=== PATIENT | female | born 1940 | race Caucasian/White ===

== ENCOUNTER → 2023-07-11 10:53 | Outpatient (REF) | payer OTHER, SELFPAY | LOC: PAVMRI 10:53 | PROVIDERS: ATTENDING PHYSICIAN Internal Medicine Hematology & Oncology; FAMILY PHYSICIAN Family Medicine; REFERRING PHYSICIAN Otolaryngology | DX: C43.72 Malignant melanoma of left lower limb, including hip (principal) | CPT/HCPCS: 70553; A9575 ==

== ENCOUNTER 2024-04-06 18:00 | Emergency (ER) | payer OTHER, SELFPAY ==
[2024-04-06] VITALS (7 sets, daily range): BP systolic 107–154; BP diastolic 65–112; BMI 26.3
--- NOTE | 2024-04-06 18:12 | ED.GENMED ---
ED Provider Triage
<GABRIEL Mckee Jr. Last Filed: 04/06/24 18:15>
-
Patient seen by provider in Triage?: Seen in Triage
Attestation: A medical screening examination has been initiated by a qualified medical provider. Based on the assessment performed at this time, it has been determined that an emergent medical condition may exist and the patient has been informed
that further medical evaluation and possible additional diagnostic testing may be needed.
HPI: 83-year-old female with chest pain off and on for the past 7 days to the central chest no radiation no associated symptoms. Additional labs and chest x-ray ordered for further assessment.
GENERAL: Alert , in no apparent distress
EYE: No visual abnormalities.
NECK: Trachea midline
ENT: No visible abnormalities.
LUNGS: No acute respiratory distress
NEUROLOGICAL: Alert and oriented
SKIN: Skin intact. No visible changes.
MUSCULOSKELETAL: Moving extremities normally
PSYCH: Normal and appropriate interaction.
This is a medical evaluation conducted in person to initiate diagnostic evaluation and provide initial therapeutics. Please see further documentation by the treating clinician.
History of Present Illness
<Sarabjit Marsh Jr., PA-C - Last Filed: 04/06/24 18:15>
General
Chief Complaint: Chest Pain
Time Seen by Provider: 04/06/24 20:30
<Logan Cisse DO - Last Filed: 04/06/24 23:26>
General
Source: patient
Exam Limitations: none
Nursing documentation reviewed up to this point in time: agreed with
History of Present Illness
History of Present Illness:
83-year-old female pain for 1 week in her lower sternum worse with movement no nausea vomiting no radiation has melanoma on Keytruda also has a thyroid nodule no history of CAD no nausea vomiting fever chills
Past History
<GABRIEL Mckee Jr. Last Filed: 04/06/24 18:15>
Past History
ED Past Medical History: Cancer (Thyroid cancer) and Hypercholesterolemia
ED Past Surgical History: Cardiac (Mitral valve repair), Urological (bladder lift) and Other (Thyroidectomy)
Social History
Tobacco: Non-smoker
Alcohol: None
Drug: None
Living: with family
Phy Exam
<Logan Cisse DO - Last Filed: 04/06/24 23:26>
Physical Exam
Physical Exam:
Physical Exam
General: no apparent distress, not acutely ill
Neck: Negative jaundice
Heart: s1/s2 regular rate and rhythm, no murmur. equal radial pulses.
Lungs: no acute respiratory distress. clear bilaterally
Abdomen: Nontender
Neuro: alert and oriented. no focal neurological deficits
Skin: no rash
Psychiatric: well kept. interactive and cooperative
Extremities: Trace edema no tenderness
Scores
<Logan Cisse DO - Last Filed: 04/06/24 23:26>
Heart Score for Chest Pain Patients
STEMI patient?: No
History: Slightly or Non-Suspicious
ECG: Normal
Age: >/= 65 years
Risk Factors: 1 or 2 Risk Factors
Troponin: </= Normal Limit
Heart Score for Chest Pain Patients: 3
Heart Score Risk: 2.5% MACE over next 6 weeks
Course
<Sarabjit Marsh Jr. PAShaunna - Last Filed: 04/06/24 18:15>
Orders/Labs/Results
Orders:
Orders
04/06/24 18:07
EKG [Electrocardiogram (*1)] Urgent
Reason for Study: Chest Pain
EKG- Treatment ONCE
04/06/24 18:13
CR Chest - 2 Views Urgent
Comment:
Reason For Exam: cp
04/06/24 18:36
Complete Blood Count/With Diff Urgent
Comprehensive Metabolic Panel Urgent
Magnesium Urgent
NT-proBNP Urgent
Troponin I Urgent
04/06/24 20:36
CT Chest Pe Study Urgent
Comment:
Reason For Exam: cp melanoma
Acetaminophen 1000MG/100Ml [Ofirmev] 1,000 mg in 100 ml IV ONCE
Acetaminophen IV Indication:: No [place] & No Enteral Access
04/06/24 20:37
HydrALAZINE [Apresoline] 10 mg IV NOW STA
Abnormal Lab Results
04/06/24
18:36
RBC 4.10 L 10^6/uL
(4.20-5.40)
MCH 32.7 H pg
(27.0-31.0)
Absolute Neuts (auto) 6.9 H 10^3/uL
(1.4-6.5)
Absolute Lymphs (auto) 0.7 L 10^3/uL
(1.2-3.4)
Neutrophils % 86.2 H %
(42.2-75.2)
Lymphocytes % 8.5 L %
(20.5-51.1)
BUN 25 H mg/dl
(7-17)
Glucose 134 H mg/dl
(70-99)
04/06/24 18:36
04/06/24 18:36
Vital Signs
Initial and Last Documented VS:
Initial Vital Signs
Temp Pulse Resp BP
98.4 F 75 20 147/112
04/06/24 18:23 04/06/24 18:23 04/06/24 18:23 04/06/24 18:23
Last Documented Vital Signs
Temp Pulse Resp BP Pulse Ox
98.4 F 87 17 107/65 96
04/06/24 18:23 04/06/24 23:02 04/06/24 23:02 04/06/24 21:40 04/06/24 21:45
<Logan Cisse, DO - Last Filed: 04/06/24 23:26>
Orders/Labs/Results
Orders:
Orders
04/06/24 18:07
EKG [Electrocardiogram (*1)] Urgent
Reason for Study: Chest Pain
EKG- Treatment ONCE
04/06/24 18:13
CR Chest - 2 Views Urgent
Comment:
Reason For Exam: cp
04/06/24 18:36
Complete Blood Count/With Diff Urgent
Comprehensive Metabolic Panel Urgent
Magnesium Urgent
NT-proBNP Urgent
Troponin I Urgent
04/06/24 20:36
CT Chest Pe Study Urgent
Comment:
Reason For Exam: cp melanoma
Acetaminophen 1000MG/100Ml [Ofirmev] 1,000 mg in 100 ml IV ONCE
Acetaminophen IV Indication:: No WI & No Enteral Access
04/06/24 20:37
HydrALAZINE [Apresoline] 10 mg IV NOW STA
Abnormal Lab Results
04/06/24
18:36
RBC 4.10 L 10^6/uL
(4.20-5.40)
MCH 32.7 H pg
(27.0-31.0)
Absolute Neuts (auto) 6.9 H 10^3/uL
(1.4-6.5)
Absolute Lymphs (auto) 0.7 L 10^3/uL
(1.2-3.4)
Neutrophils % 86.2 H %
(42.2-75.2)
Lymphocytes % 8.5 L %
(20.5-51.1)
BUN 25 H mg/dl
(7-17)
Glucose 134 H mg/dl
(70-99)
04/06/24 18:36
04/06/24 18:36
Vital Signs
Initial and Last Documented VS:
Initial Vital Signs
Temp Pulse Resp BP
98.4 F 75 20 147/112
04/06/24 18:23 04/06/24 18:23 04/06/24 18:23 04/06/24 18:23
Last Documented Vital Signs
Temp Pulse Resp BP Pulse Ox
98.4 F 87 17 107/65 96
04/06/24 18:23 04/06/24 23:02 04/06/24 23:02 04/06/24 21:40 04/06/24 21:45
<Logan Cisse DO - Last Filed: 04/06/24 23:26>
MDM/Problems Addressed
Differential Diagnosis Includes:
Pleurisy PE metastatic disease doubt ACS
MDM/Problems Addressed:
Chest pain
Chronic conditions affecting care: Cancer
Acute Exacerbation and/or Progression of Chronic Illness: Cancer
<Logan Cisse DO - Last Filed: 04/06/24 23:26>
*Radiology
Radiology exam reviewed: radiology read reviewed
*Pulse Oximetry
Patient hypoxic: no
*EKG
Interpreted by ED Provider?: Yes
Interpretation: normal
Comparison EKG: no comparison EKG present
Heart Rate: 78
Rate: normal
Rhythm: sinus
QRS Pattern: normal QRS
*Recreation Program Coordinator Interpretation
Rate: normal
Interpretation: normal
Heart Rate: 78
Rhythm: sinus
*Critical Care Note
Total Time (30-74mins, 75-104mins- exclusive of procedures): Not Applicable
<Logan Cisse DO - Last Filed: 04/06/24 23:26>
Update Note
Update Note:
Update, labs are noted 7 days of pain with low troponin, proBNP noted will check CT of the chest to rule out thromboembolic disease or mets
Update CT noted,
ED Attending Note
<Sarabjit Marsh Jr., PA-C - Last Filed: 04/06/24 18:15>
-
Portions of this chart may have been created with voice recognition software.� Occasional wrong word or��sound alike� substitutions may have occurred due to the inherent limitations of voice recognition software.
Discharge Plan
Departure
Patient Disposition: Home (Routine Discharge)
Date of Disposition: 04/06/24
Time of Disposition: 23:25
Patient with high blood pressure during this ER visit?: No
Condition: Good
Discharge Problem:
Chest wall pain
Prescriptions:
New
oxycodone 5 mg capsule
5 mg PO Q8H PRN (Reason: Pain) Qty: 10 0RF
No Action
amlodipine 5 mg Tablet
5 mg PO DAILY
levothyroxine [Synthroid] 100 mcg Tablet
100 mcg PO DAILY
hydroxychloroquine [Plaquenil] 200 mg Tablet
200 mg PO DAILY
ezetimibe-atorvastatin 10-20 mg Tablet
1 tab PO DAILY
Keytruda 25 mg/mL Solution
400 mg IV Q6W
Referrals:
NONE,* [Family Provider] -
Interventions
Interventions:
*Risk Screen - Suicide Last Done: 04/06/24 18:23
*General Assessment Last Done: 04/06/24 18:23
*Neglect/Abuse Screening Last Done: 04/06/24 18:23
ED- Fall Risk Assessment Last Done: 04/06/24 20:16
*ED COVID-19 Vaccine History Last Done: 04/06/24 20:16
ED- Cardiac Assessment Last Done: 04/06/24 20:15
Discharge Date and Time
Print Language: GREENLANDIC
[2024-04-06 18:43] LABS: % Basophils 0.4 % (0-2); % Eosinophils 0.6 % (0-6); % Immature Granulocytes 0.4 % (0-0.5); % Lymphocytes 8.5 % (20.5-51.1); % Monocytes 3.9 % (1.7-9.3); % Neutrophils 86.2 % (42.2-75.2); Absolute Eosinophils 0.1 10^3/uL (0-0.7); Absolute Lymphocytes 0.7 10^3/uL (1.2-3.4); Absolute Monocytes 0.3 10^3/uL (0.1-0.6); Absolute Neutrophils 6.9 10^3/uL (1.4-6.5); Hematocrit 39.8 % (37.0-47.0); Hemoglobin 13.4 g/dL (12.0-16.0); Mean Corp Hgb Conc. 33.7 g/dL (33.0-37.0); Mean Corpuscular Hgb 32.7 pg (27.0-31.0); Mean Corpuscular Volume 97.1 fL (81.0-99.0); Mean Platelet Volume 9.4 fL (7.4-10.4); Nucleated Red Blood Cells % 0 %; Platelet Count 208 10^3/uL (130-400); Red Cell Dist. Width 12.6 % (11.5-14.5)
[2024-04-06 18:57] LABS: ALT (SGPT) 24 U/L (0-35); AST (SGOT) 28 U/L (14-36); Albumin 4.8 g/dl (3.5-5.0); Alkaline Phosphatase 65 U/L (38-126); Blood Urea Nitrogen 25 mg/dl (7-17); Calcium 9.3 mg/dl (8.4-10.2); Carbon Dioxide 27 mmol/L (22-30); Chloride 98 mmol/L (98-107); Glucose 134 mg/dl (70-99); Magnesium 2.1 mg/dl (1.6-2.3); Sodium 136 mmol/L (135-145); Total Protein 7.7 g/dl (6.3-8.2); eGFR > 60.00
[2024-04-06 19:07] LABS: NT-proBNP 261 pg/ml; Troponin I < 0.012 ng/ml
[2024-04-06] MEDS: APRESOLINE 10 MG IV (21:02)
[2024-04-06] MEDS: OFIRMEV 100 IV (21:04)
[2024-04-07] VITALS: BP 98/65
== END 2024-04-07 00:26 | disposition home or self-care (01) ==
LOC: EMR 18:00
PROVIDERS: Physician Assistant; EMERGENCY PHYSICIAN Emergency Medicine
DX: R07.89 Other chest pain (principal); C43.9 Malignant melanoma of skin, unspecified; E78.00 Pure hypercholesterolemia, unspecified; E89.0 Postprocedural hypothyroidism; Z85.850 Personal history of malignant neoplasm of thyroid
CPT/HCPCS: 99285; 96374; 96375; 71046; 71275; 80053; 83735; 83880; 84484; 85025; 93005; Q9967

== ENCOUNTER → 2024-12-31 09:44 | Outpatient (REF) | payer OTHER, SELFPAY ==
[2024-12-31 09:49] LABS: Glucose 112 mg/dl (70-99)
== END ==
LOC: PET 09:44
PROVIDERS: ATTENDING PHYSICIAN Internal Medicine Hematology & Oncology
DX: C43.72 Malignant melanoma of left lower limb, including hip (principal); Z79.899 Other long term (current) drug therapy
CPT/HCPCS: 36415; 82947

== ENCOUNTER 2025-01-03 11:15 | Emergency (ER) | payer OTHER, SELFPAY ==
[2025-01-03 11:34] VITALS: BP 130/95
[2025-01-03] MEDS: LET TOPICAL ANESTHETIC GEL 3 ML TOPICAL (12:23)
--- NOTE | 2025-01-03 12:31 | ED.MUSCINJ ---
HPI-Injury
General
Chief Complaint: Fall
Source: patient and family
Exam Limitations: none
Time Seen by Provider: 01/03/25 11:54
Nursing documentation reviewed up to this point in time: agreed with
History of Present Illness-Injury
Initial Injury comments:
84 yo female w h/o HTN, HLD, thyroidectomy, mitral valve repair, lives alone, got up in the middle of the night to go to the bathroom, reports the bathroom door open, stumbled and fell striking her right eyebrow area on the floor. There was no loss
of conscious. She states 'I got right up and went to the kitchen and got an ice pack.' She is not anticoagulated. She denies headache. Unsure of last tetanus immunization. Last 1 documented was 09/2019
Past History
Past History
ED Past Medical History: Cancer (Thyroid cancer) and Hypercholesterolemia
ED Past Surgical History: Cardiac (Mitral valve repair), Urological (bladder lift) and Other (Thyroidectomy)
Social History
Tobacco: Non-smoker
Alcohol: None
Drug: None
Living: with family
Review of Systems
Review of Systems
Allergies reviewed?: Yes
All Other Systems: ROS reviewed and negative except as documented in HPI and ROS
Skin Exam
Laceration
Right Eye brow:
Length in cm: 1.5
Orientation: diagonal
Type of Laceration: simple
Any active bleeding?: low grade venous oozing
Phy Exam
Physical Exam
Physical Exam:
GENERAL: No acute distress. A&Ox3.
CONSTITUTIONAL: Afebrile.
EYES: clear, conjunctivae normal, EOMs intact, no orbital bony tenderness.
ENMT: moist mucus membranes, Pharynx nl
RESPIRATORY: Regular respirations, nonlabored, lungs clear.
CARDIOVASCULAR: Regular rate and rhythm, no murmurs, no rubs.
GI: Soft, nontender, normal BS
MUSCULOSKELETAL: Moves with ease. Well perfused.
SKIN: Warm, dry, pink
PSYCH: Normal mood and affect. Well kept, interactive and appropriate
NEUROLOGIC: Awake, alert and oriented. No focal neurological deficits. CN 2-12 intact. Ambulating well with normal gait.
Injury Course
Orders/Labs/Results
Orders:
Orders
01/03/25 12:20
Lidocaine/Epinephrine/Tetracai [Let Topical Anesthetic Gel] 3 ml .ROUTE .STK-MED ONE
01/03/25 12:23
Lidocaine/Epinephrine/Tetracai [Let Topical Anesthetic Gel] 3 ml TOPICAL NOW STA
01/03/25 12:38
Tetanus/Diphth/Acelpertussis [Adacel] 0.5 ml IM .ONCE ONE
Procedures
Laceration Closure
Right Eye brow:
Status of Wound: clean
Size of Wound in cm: 1.5
Description of Wound Edges: sharp
Preparation: cleaned with saline
Anesthesia: Topical-LET
Revision/Debridement: routine- no revision
Type of Closure: Dermabond-skin glue
Additional information:
skin adhesive and steristrips applied
MDM/Problems Addressed
MDM/Problems Addressed:
84 yo female w h/o HTN, HLD, thyroidectomy, mitral valve repair, lives alone, got up in the middle of the night to go to the bathroom, reports the bathroom door open, stumbled and fell striking her right eyebrow area on the floor. There was no loss
of conscious. She states 'I got right up and went to the kitchen and got an ice pack.' She is not anticoagulated. She denies headache. Unsure of last tetanus immunization. Last 1 documented was 09/2019
NAD, alert pleasant,
Physical exam unremarkable save for a right eyebrow laceration
Neuro exam is normal, not anticoagulated, no LOC. No indication for head CT.
Wound cleansed copiously with normal saline solution, fresh bleeding occurred, wound is clean. Wound edges well-approximated with wound glue.
*Pulse Oximetry
SaO2: 97
Oxygen Mode of Delivery: Room air
Patient hypoxic: not evaluated
*Critical Care Note
Total Time (30-74mins, 75-104mins- exclusive of procedures): Not Applicable
ED Attending Note
-
Portions of this chart may have been created with voice recognition software.� Occasional wrong word or��sound alike� substitutions may have occurred due to the inherent limitations of voice recognition software.
Discharge Plan
Departure
Patient Disposition: Home (Routine Discharge)
Date of Disposition: 01/03/25
Time of Disposition: 13:27
Patient with high blood pressure during this ER visit?: No
Condition: Good
Discharge Problem:
Laceration of right eyebrow
Instructions: Laceration Repair With Glue (DC), Head Injury in Adults (DC)
Prescriptions:
No Action
amlodipine 5 mg Tablet
5 mg PO DAILY
levothyroxine [Synthroid] 100 mcg Tablet
100 mcg PO DAILY
hydroxychloroquine [Plaquenil] 200 mg Tablet
200 mg PO DAILY
ezetimibe-atorvastatin 10-20 mg Tablet
1 tab PO DAILY
Keytruda 25 mg/mL Solution
400 mg IV Q6W
oxycodone 5 mg capsule
5 mg PO Q8H PRN (Reason: Pain) Qty: 10 0RF
Referrals:
Your Doctor [Other] - As needed
Activity Restrictions/Additional Instructions:
As we discussed, it take about a week for this area to heal. You may briefly wet the area in the shower/bath, just don't rub it or apply any ointments.
After showering, pat the strips dry or blow the dry.
If they have not fallen off in 5 days you may removed them. If they fall off before then, it's ok
The glue should slough off in 7-10 days.
Interventions
Interventions:
*Risk Screen - Suicide Last Done: 01/03/25 11:34
*Nursing Disposition Last Done: 01/03/25 13:36
ED-Musculoskeletal Assessment Last Done: 01/03/25 12:07
ED- Neurological Assessment Last Done: 01/03/25 12:07
ED-Skin Assessment Last Done: 01/03/25 12:07
Discharge Date and Time
Discharge Date/Time: 01/03/25 13:36
Print Language: BENINESE
[2025-01-03] MEDS: ADACEL 0.5 ML IM (13:04)
== END 2025-01-03 13:36 | disposition home or self-care (01) ==
LOC: EMR 11:15
PROVIDERS: EMERGENCY PHYSICIAN Emergency Medicine
DX: S01.111A Laceration without foreign body of right eyelid and periocular area, initial encounter (principal); W01.198A Fall on same level from slipping, tripping and stumbling with subsequent striking against other object, initial encounter; E78.00 Pure hypercholesterolemia, unspecified; I10 Essential (primary) hypertension; Z85.850 Personal history of malignant neoplasm of thyroid; Z23 Encounter for immunization
CPT/HCPCS: 90471; 12011; 99282; 90715

== ENCOUNTER → 2025-04-06 17:38 | Outpatient (REF) | payer OTHER, SELFPAY | LOC: MRI 17:38 | PROVIDERS: ATTENDING PHYSICIAN Internal Medicine Hematology & Oncology | DX: C43.72 Malignant melanoma of left lower limb, including hip (principal); Z79.899 Other long term (current) drug therapy; C78.7 Secondary malignant neoplasm of liver and intrahepatic bile duct | CPT/HCPCS: 70553; A9575 ==